=== PATIENT | female | born 1955 | race Caucasian/White ===

== ENCOUNTER → 2017-03-22 | Outpatient (CLI) | payer BC ==
[~2017-03-22] MED LIST: MOTRIN 600MG.600 MG PO; [UNRECOGNIZED DRUG - CODE] PO
== END ==
LOC: RT 13:22
DX: J41.8 Mixed simple and mucopurulent chronic bronchitis (principal)

== ENCOUNTER → 2017-04-16 | Outpatient (CLI) | payer BC | LOC: DIETICIAN 08:42 | DX: E11.9 Type 2 diabetes mellitus without complications (principal); Z71.3 Dietary counseling and surveillance | CPT/HCPCS: G0108 ==

== ENCOUNTER 2017-05-20 13:01 | Day surgery (SDC) | payer BC ==
[~2017-05-20] VITALS: Ht 175.3 cm; Wt 77.1 kg
[2017-05-20 13:30] VITALS: BP 146/76
--- NOTE | 2017-05-20 14:32 | Operative Note ---
Colonoscopy ([facility]) Procedure date: 05/20/17 Date of : 59 Procedure:Colonoscopy Colonoscopy with cold snare polypectomy Indications: Mrs. Cunningham is a 61-year-old female who is here for screening colonoscopy. She did have a colonoscopy 10 years ago in [facility] which was normal. Her father had colon cancer in his 60s. The patient reports no abdominal pain, weight loss, change in her bowel habits or rectal bleeding. Performing Provider: Jarvis Sanford MD Referrring Provider: Jojo MILLER Sedation: MAC sedation Procedure: Prior to the procedure, a history and physical exam was performed, and patient medications and allergies were reviewed. The risks and benefits of the procedure and the sedation options and risks were discussed with the patient. All questions were answered and informed consent was obtained. Patient identification and proposed procedure were verified by the physician and the nurse. The patient was placed in a left lateral decubitus position. Throughout the procedure, the patient's blood pressure, pulse, and oxygen saturations were monitored continuously. Findings: On digital rectal examination there was normal rectal tone. There were no external hemorrhoids. The colonoscope was introduced through the anal canal to the rectum and advanced to the cecum. The ileocecal valve and appendiceal orifice were identified. The scope was advanced a short distance into the ileum which appeared grossly normal. The scope was then withdrawn into the colon. The cecum, ascending and transverse colon and mucosa were grossly normal. There were scattered diverticuli throughout the descending and sigmoid colon (LEFT colon). There was a 13 mm polyp in the sigmoid colon removed via snare cautery and a 7 mm polyp in the rectum removed via cold snare polypectomy. Upon retroflexion within the rectum there were grade 1 internal hemorrhoids. The preparation was fair to poor with some liquid brown and some solid stool with the Laurel preparation score of 5-6. Impressions: 1. Colonic polyps 2 2. Left-sided diverticulosis 3. Grade 1 internal hemorrhoids 4. Fair to poor preparation with Laurel Preparation Score of 5-6 Recommendations: I would recommend repeat screening/surveillance colonoscopy again in 3 years based upon the size of the polyps and her poor bowel preparation and family history. I will discuss this with the patient and family. Complications: None EBL (ml): 0 at 1432
== END 2017-05-20 15:06 | disposition home or self-care (01) ==
LOC: SDC 13:01
PROC: 0DBP8ZX Excision of Rectum, Via Natural or Artificial Opening Endoscopic, Diagnostic (ICD-10-PCS; principal; 2017-05-20)
PROC: 0DBN8ZX Excision of Sigmoid Colon, Via Natural or Artificial Opening Endoscopic, Diagnostic (ICD-10-PCS; 2017-05-20)
DX: Z12.11 Encounter for screening for malignant neoplasm of colon (principal); D12.5 Benign neoplasm of sigmoid colon; K57.30 Diverticulosis of large intestine without perforation or abscess without bleeding; Z80.0 Family history of malignant neoplasm of digestive organs